=== PATIENT | female | born 1995 | race American Indian/Alaskan Native ===

== ENCOUNTER 2019-04-21 14:31 | Emergency (ER) | payer SELFPAY ==
[2019-04-21 15:48] VITALS: BP 113/58
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
[2019-04-21] MEDS ORDERED: HYDROcodone/ACETAMINOPHEN 5-325 MG TAB PO STA (17:20)
--- NOTE | 2019-04-21 18:06 | XRay Report ---
LUMBAR SPINE, AP AND LATERAL VIEWS 04/21/2019 INDICATION / CLINICAL INFORMATION: lower back pain. COMPARISON: None available. FINDINGS: Lumbosacral disc interspaces are well-maintained. No fracture. Bony alignment is normal. Signer Name: Robert Waters MD Signed: 04/21/2019 6:02 PM Workstation Name: [id number]
== END 2019-04-21 18:50 | disposition home or self-care (01) ==
LOC: ED 14:31
DX: M79.18 Myalgia, other site (principal); M54.9 Dorsalgia, unspecified
CPT/HCPCS: 72100; 99283